=== PATIENT | female | born 1965 | race Two or more races ===

== ENCOUNTER → 2018-08-17 | Outpatient (CLI) | payer OTHER | END | disposition home or self-care (01) | LOC: SONOGRAMA 13:34 → MAMO-SONO 14:15 | DX: N95.0 Postmenopausal bleeding (principal) ==

== ENCOUNTER 2019-01-09 13:43 | Outpatient (CLI) | payer OTHER | END 2019-01-09 13:53 | disposition home or self-care (01) | LOC: SONOGRAMA 13:43 | DX: R10.2 Pelvic and perineal pain (principal) ==

== ENCOUNTER 2019-08-23 10:25 | Outpatient (CLI) | payer OTHER | END 2019-08-23 10:34 | disposition home or self-care (01) | LOC: SONOGRAMA 10:25 → MAMO-SONO 11:15 | PROVIDERS: ATTEND Obstetrics & Gynecology Gynecology | DX: N95.0 Postmenopausal bleeding (principal) ==

== ENCOUNTER 2021-07-09 08:16 | Outpatient (CLI) | payer OTHER | END 2021-07-09 08:28 | disposition home or self-care (01) | LOC: TOM 08:16 | PROVIDERS: ATTEND Urology | DX: R31.29 Other microscopic hematuria (principal) ==

== ENCOUNTER 2021-12-16 09:55 | Outpatient (CLI) | payer OTHER | END 2021-12-16 09:56 | disposition home or self-care (01) | LOC: SONOGRAMA 09:55 | PROVIDERS: ATTEND Obstetrics & Gynecology Gynecology | DX: R10.2 Pelvic and perineal pain (principal) ==

== ENCOUNTER 2022-03-22 12:29 | Outpatient (CLI) | payer OTHER | END 2022-03-22 12:32 | disposition home or self-care (01) | LOC: MAMO-SONO 12:29 | PROVIDERS: ATTEND Legal Medicine | DX: N64.4 Mastodynia (principal); R05.9 Cough, unspecified ==